=== PATIENT | male | born 1945 | race Caucasian/White ===

== ENCOUNTER 2023-03-06 10:27 | Inpatient (IN) | payer OTHER ==
[2023-03-06] VITALS (7 sets, daily range): BP systolic 80–105; BP diastolic 45–74; TEMP 98–98.3; O2SAT 92–98
[~2023-03-06] VITALS: Ht 167.6 cm; Wt 99.8 kg
[2023-03-06] MEDS ORDERED: DILTIAZEM HCL 25 MG IV IV ONE (11:15)
[2023-03-06 11:26] LABS: CALCIUM 9.8 mg/dL (8.5-10.1); CARBON DIOXIDE 29 mmol/L (21-32); CHLORIDE 103 mmol/L (98-107); CREATININE 1.4 mg/dL (0.6-1.3); GLUCOSE 92 mg/dL (74-106); SODIUM SERUM 140 mmol/L (136-145); UREA NITROGEN, BLOOD 22 mg/dL (7-18)
[2023-03-06 11:27] LABS: BASOPHILS # (AUTO) 0.1 K/UL (0.0-0.2); BASOPHILS % (AUTO) 0.7 % (0.0-2.0); EOSINOPHILS % (AUTO) 0.1 % (0.0-7.0); HEMATOCRIT 46.8 % (36.7-47.1); HEMOGLOBIN 15.5 g/dL (12.5-16.3); LYMPHOCYTES # (AUTO) 1.7 K/uL (0.8-4.8); LYMPHOCYTES % (AUTO) 19.1 % (20.5-51.5); MEAN CORPUSCULAR HEMOGLOBIN 28.9 uug (23.8-33.4); MEAN CORPUSCULAR HGB CONC 33 g/dL (32.5-36.3); MEAN CORPUSCULAR VOLUME 87.3 fL (73.0-96.2); MONOCYTES # (AUTO) 0.5 K/uL (0.1-1.30); MONOCYTES % (AUTO) 5.3 % (0.0-11.0); NEUTROPHILS # (AUTO) 6.7 K/uL (1.8-8.9); NEUTROPHILS % (AUTO) 74.8 % (38.5-71.5); PLATELET COUNT (AUTO) 366 K/uL (152-348); RED BLOOD CELL COUNT(AUTO) 5.36 MIL/uL (4.06-5.63); RED CELL DISTRIBUTION WIDTH 13.6 % (12.1-16.2)
[2023-03-06] MEDS ORDERED: HEPARIN/D5W DRIP 500 ML IV PRN (11:30)
[2023-03-06] MEDS ORDERED: DILTIAZEM HCL 25 MG IV ONE (11:35)
[2023-03-06 11:36] LABS: DIFFERENTIAL COMMENT 1
[2023-03-06 11:39] LABS: ALANINE AMINOTRANSFERASE 33 U/L (16-63); ALBUMIN 3.2 g/dL (3.4-5.0); ALKALINE PHOSPHATASE 64 U/L (50-136); BILIRUBIN,DIRECT 0.2 mg/dL (0.0-0.2); BILIRUBIN,TOTAL 0.6 mg/dL (0.2-1.0); NT-PRO BNP 578 pg/mL (0-125); TOTAL PROTEIN, SERUM 7.1 g/dL (6.4-8.2)
[2023-03-06] MEDS ORDERED: HEPARIN SODIUM,PORCINE 5,000 UNITS/ML VIAL IV ONE (12:15)
[2023-03-06 12:18] LABS: ASPARTATE AMINOTRANSFERASE 27 U/L (15-37)
[2023-03-06] MEDS ORDERED: HEPARIN SODIUM,PORCINE 5,000 UNITS/ML VIAL ONE (12:19)
[2023-03-06] MEDS ORDERED: MAGNESIUM HYDROXIDE 30 ML LIQUID UDC PO PRN (14:45)
[2023-03-06] MEDS ORDERED: ACETAMINOPHEN 325 MG TABLET PO PRN (14:45)
[2023-03-06] MEDS ORDERED: ONDANSETRON 4 MG/2 ML VIAL IV PRN (14:45)
[2023-03-06] MEDS ORDERED: ASPIRIN 81 MG TAB.CHEW PO SCH (14:45)
[2023-03-06] MEDS ORDERED: REMEDY ESSENTIAL ZINC PASTE 113 GM TP PRN (14:45)
[2023-03-06] MEDS ORDERED: ZOLPIDEM 5 MG TABLET PO PRN (14:45)
[2023-03-06] MEDS ORDERED: IV NORMAL SALINE 250 ML IV ONE (15:13)
[2023-03-06] MEDS ORDERED: IOHEXOL 350 100 ML INFUS..BTL ONE (15:13)
[2023-03-06] MEDS ORDERED: SWABABLE VALVE TRANSFER SET EA MC ONE (15:13)
[2023-03-06] MEDS: IV NS 1000 ML 1,000 ML IV PRN (15:28)
[2023-03-06] MEDS: APIXABAN 5 MG TABLET PO SCH (20:50)
[2023-03-07] VITALS (14 sets, daily range): BP systolic 84–124; BP diastolic 54–86; TEMP 97.3–99.8; O2SAT 92–95
[2023-03-07] MEDS: IV NS 1000 ML 1,000 ML IV PRN ×2 (02:08→10:34)
[2023-03-07 06:05] LABS: BASOPHILS % (AUTO) 0.7 % (0.0-2.0); EOSINOPHILS # (AUTO) 0.1 K/uL (0.0-0.7); HEMATOCRIT 39.8 % (36.7-47.1); HEMOGLOBIN 13.1 g/dL (12.5-16.3); LYMPHOCYTES # (AUTO) 1.8 K/uL (0.8-4.8); LYMPHOCYTES % (AUTO) 29.8 % (20.5-51.5); MEAN CORPUSCULAR HGB CONC 33 g/dL (32.5-36.3); MEAN CORPUSCULAR VOLUME 88.1 fL (73.0-96.2); MONOCYTES # (AUTO) 0.6 K/uL (0.1-1.30); MONOCYTES % (AUTO) 9.4 % (0.0-11.0); NEUTROPHILS # (AUTO) 3.7 K/uL (1.8-8.9); NEUTROPHILS % (AUTO) 59.1 % (38.5-71.5); PLATELET COUNT (AUTO) 300 K/uL (152-348); RED BLOOD CELL COUNT(AUTO) 4.52 MIL/uL (4.06-5.63); RED CELL DISTRIBUTION WIDTH 13.6 % (12.1-16.2); WHITE BLOOD COUNT (AUTO) 6.2 K/uL (3.6-10.2)
[2023-03-07 06:10] LABS: DIFFERENTIAL COMMENT 1
[2023-03-07 06:32] LABS: CALCIUM 8.5 mg/dL (8.5-10.1); CREATININE 0.9 mg/dL (0.6-1.3); MAGNESIUM 1.8 mg/dL (1.8-2.4); PHOSPHOROUS 3.2 mg/dL (2.5-4.9); POTASSIUM 4.1 mmol/L (3.5-5.1)
[2023-03-07] MEDS: APIXABAN 5 MG TABLET PO SCH (07:45)
[2023-03-07] MEDS ORDERED: CEFTRIAXONE 1 G in IV DEXTROSE 5% 50 ML IV SCH (12:30)
[2023-03-07] MEDS ORDERED: AZITHROMYCIN IV 500 MG in IV DEXTROSE 5% 250 ML IV SCH (13:00)
[2023-03-07] MEDS ORDERED: METOPROLOL TARTRATE 5 MG/5 ML VIAL IVP ONE (13:00)
[2023-03-07] MEDS ORDERED: CEFTRIAXONE 2 G in IV DEXTROSE 5% 100 ML IV SCH (14:00)
== END 2023-03-07 13:20 | disposition left against medical advice (07) | DRG 308 ==
LOC: ER 10:27 → CCU 14:00
PROVIDERS: ADMIT Nurse Practitioner Acute Care; ATTEND Nurse Practitioner Acute Care
DX: I48.91 Unspecified atrial fibrillation (principal); I50.33 Acute on chronic diastolic (congestive) heart failure; J15.9 Unspecified bacterial pneumonia; N17.0 Acute kidney failure with tubular necrosis; R79.1 Abnormal coagulation profile; E66.9 Obesity, unspecified; Z68.35 Body mass index [BMI] 35.0-35.9, adult; E87.5 Hyperkalemia; Z98.890 Other specified postprocedural states
CPT/HCPCS: 36415; 71045; 71275; 83735; 84100; 84484; 85025; 85730; 93005; 93307; G0378; J0456; J0696; J1644; J3490; J7040; J7050; Q9967